=== PATIENT | female | born 1970 | race Caucasian/White ===

== ENCOUNTER 2016-08-11 08:19 | Emergency (ER) | payer OTHER ==
[~2016-08-11] VITALS: Ht 170.2 cm; Wt 87.0 kg
[~2016-08-11 08:19] MED LIST: BISM262T3 PO; IBUP-103 PO; PROM25TA9 PO
[2016-08-11 08:22] VITALS: TEMP 36.8; Ht 170.2 cm; Wt 87.0 kg
[2016-08-11] MEDS ORDERED: KETOROLAC TROMETHAMINE 60 MG/2 ML VIAL IM STA (08:44)
--- NOTE | 2016-08-11 09:00 | EMERGENCY ROOM VISIT NOTE ---
History First contact with patient: 09:08 Chief Complaint: NECK PAIN Stated Complaint: NECK PAIN AND RT ARM PAIN History of Present Illness The patient is a 45 year old female who presents to the Emergency Room with complaints of acute neck pain. The pain started 1 day ago. There is no injury or trauma. She points to the whole back of her neck. She notes this has been an ongoing problem. She was seen at a hospital in [place] 1 year ago (uncertain if she had just Xray or MRI as well) but was told she had a 'pinched nerve in her neck'. She was discharged without further follow-up. Her pain has continued on for the past year, at baseline 5/10 aching pain with radiation to the right arm. Her pain today worsened overnight to 7/10, aching pain, with radiation to the right upper extremity, particularly the back of the upper arm. She notes some tingling and weakness in the hand that is present at baseline but has worsened slightly. Her pain is worse when she rotates her neck to the right. She does have a mild headache today. \She denies fevers, visual disturbance or temporal tenderness. She takes Advil intermittently with variable effect. She has not taken Tylenol. She tried a muscle relaxant 1 year ago but is not currently on one. She has been eating and voiding without difficulty She has no chest pain or shortness of breath. Past Medical/Surgical History Medical Problems: (1) Cervical disc disease (2) Hypertension Arrhythmia, otherwise unspecified HTN: not on medication Surgical - Appendicectomy - Ablation 2012 Family History Mother: Fibromyalgiia of Lung Ca Social History Smoking Status: Never Smoker Smokeless Tobacco Use: No Alcohol Use: none Drug Use: none Marital Status: Housing Status: lives with significant other Occupation Status: employed ([employer]) Social History: Able to perform ADLs Current/Historical Medications Scheduled Cyclobenzaprine Hcl (Flexeril), 7 MG PO HS Prednisone (Prednisone), 1 TAB PO DAILY Allergies Coded Allergies: No Known Allergies (Unverified , 08/11/16) Physical Exam Vital Signs Date Time Temp Pulse Resp B/P Pulse Ox O2 Delivery O2 Flow Rate FiO2 08/11/16 09:49 65 17 146/86 100 08/11/16 09:27 68 15 137/88 96 Room Air 08/11/16 08:22 36.8 73 18 152/78 100 Room Air Pain Rating (0-10): 7 Physical Exam Constitutional: Vital signs as above were reviewed. Eyes: Pupils equal, round, and reactive to light. Extraocular muscles are intact. No proptosis. No photophobia. ENT: Mucous membranes are moist. Oropharynx is clear. No sinus tenderness. TMs are clear bilaterally. Cardiovascular: Heart with a regular rate and rhythm. Pulses are palpable and symmetric in all 4 extremities. No pedal edema appreciated. Respiratory: Lungs clear to auscultation bilaterally. No wheezes, rales, or rhonchi appreciated. No accessory muscle use. No retractions. No increased work of breathing. GI: Abdomen soft, nontender, nondistended. Normal active bowel sounds. No abdominal hernias appreciated. No rebound. No guarding. : No CVA tenderness appreciated. Musculoskeletal: No gross deformities. No bony tenderness. No calf swelling or tenderness. Point tenderness and swelling at base of C-spine and right suprascapular muscle Soft tissue prominence at base of C-spine; Suprascapular knot on the right side Limited right rotation (max 30 degrees); left rotation 60 degrees Compensates with scapular muscles with lateral flexion bilaterally Integumentary: Warm, dry, no rashes appreciated. Neurological: Patient awake, alert, and oriented x 3. Cranial nerves two through 12 grossly intact. Motor 5 out of 5 strength bilateral upper and lower extremities. Strength 5/5 in upper extremities, bilaterally Radial, ulnar and medial sensation, intact bilaterally Lymph: No cervical lymphadenopathy appreciated. Medical Decision & Procedures ER Provider Diagnostic Interpretation: CERVICAL SPINE 2 OR 3 VIEWS CLINICAL HISTORY: Acute neck pain with cervical spine tenderness. COMPARISON STUDY: No previous studies for comparison. FINDINGS: The prevertebral soft tissues are normal. There are moderate degenerative changes at the C56 and C6-7 levels with osteophyte formation, disc space narrowing.. No acute fractures or traumatic subluxations are visualized. No destructive lesions are evident. IMPRESSION: 1. No fractures or subluxations are visualized 2. Moderate degenerative changes at the C5-6 and C6-7 levels. Electronically signed by: Eddie Xie M.D. 08/11/2016 9:13 AM Dictated Date/Time: 08/11/2016 9:12 AM Medications Administered Medications (Trade) Dose Ordered Sig/Angeline Route Start Time Stop Time Status Last Admin Dose Admin Ketorolac Tromethamine (Toradol Inj) 60 mg NOW STAT IM 08/11/16 08:44 08/11/16 08:46 DC 08/11/16 08:51 60 MG Prednisone (PredniSONE TAB) 50 mg ONE ONCE PO 08/11/16 09:00 08/11/16 09:01 DC 08/11/16 09:26 50 MG ED Course 08:30 - Patient seen and assessed Orders for C-spine x-ray and 3 mg IM Toradol 08:45 - Precepted Case with Dr. Graham 09:00 - 50 mg Prednisone given to patient 09:30 - Reviewed C-spine film: negative Discussed results with patient; patient agreeable to discharge. PDMP reviewed 09:45 - Patient discharged in stable condition with prescriptions for 7 days of Flexeril plus additional 4 days of Prednisone 50 mg Medical Decision Patient is a pleasant 45 year old female with acute on chronic neck pain with radicular features. History was obtained, physical examination was performed and EMR reviewed. The case was discussed at multiple points of the patient's visit with Dr. Dereck Graham. This is a chronic problem and she has had cervical radiculopathy for the past 1 year (diagnosed in her previous home of [place]). Differential diagnosis includes, musculoskeletal strain, c-spine OA, facet arthropathy, c-spine fracture, cervical outlet syndrome, epidural abscess or hematoma. Patient does not some tingling in the hands but neurological examination is grossly intact. Apart from x-ray, advanced imaging such as MRI is not indicated at this time. She did have tight knots in her neck and in her right suprascapular muscle, suggesting possible muscular tension with underlying nerve compression. There are no features indicating need for surgical intervention. She was treated with 1 dose of Toradol which she responded well to. Ultimately , she needs physical therapy for home exercise modalities. She was given information to contact [facility]. She was discharged in stable condition. She was given a short course of Flexeril. The PDMP was reviewed prior to prescribing this. She will also complete a total 5 day course of Prednisone. [place] Drug Monitoring Program Search Results: patient reviewed within database (no records of controlled substance prescription) Impression Primary Impression: Degeneration of cervical intervertebral disc Ruled Out: Cervical spine fracture Departure Information Dispostion Home / Self-Care Condition GOOD Prescriptions Cyclobenzaprine Hcl (FLEXERIL) 10 Mg Tab 7 MG PO HS, #7 TAB Prov: Ambrose Elder MD 08/11/16 Prednisone (Prednisone) 50 Mg Tab 1 TAB PO DAILY for 4 Days, #4 TAB Prov: Ambrose Elder MD 08/11/16 Referrals No Doctor, Assigned (PCP) Patient Instructions My [facility] Additional Instructions You were admitted for acute neck pain. We did an x-ray of your neck. It does show some arthritis between you C5 and C7 vertebrae but there are no fractures and you do not need to be admitted at this time. We treated you with intramuscular non-steroidal medication which did help. You symptoms of tingling in the arm, likely suggest that you have a pinched nerve. When we examined you, you did have area of neck tightness. This may be the cause of your symptoms in addition to the arthritis in your neck. The first step to treating this is with physical therapy. You should be assessed by a physical therapist who can help you come up with a plan for home exercises to hopefully loosen some of the muscles in your neck. [facility] runs a physical therapy service that you can contact with the following information: [facility] [address] [place] [address] As you go home, we will give you 4 days of oral steroids to help subside the pain. In addition, we will give you a muscle relaxant to be used at nighttime only for the next 7 days. We expect this will help get past the peak of the pain If you are looking for a primary care provider, you can contact Dr. Ambrose Elder: [address], [address] [phone] If your symptoms fail to improve, acutely worsen, please seek medical attention immediately by either calling your primary care provider or going to your nearest emergency department. It was a pleasure to be involved in your care and we wish you all the best.
--- NOTE | 2016-08-11 09:15 | DIAGNOSTIC IMAGING REPORT ---
CERVICAL SPINE 2 OR 3 VIEWS CLINICAL HISTORY: Acute neck pain with cervical spine tenderness. COMPARISON STUDY: No previous studies for comparison. FINDINGS: The prevertebral soft tissues are normal. There are moderate degenerative changes at the C56 and C6-7 levels with osteophyte formation, disc space narrowing.. No acute fractures or traumatic subluxations are visualized. No destructive lesions are evident. IMPRESSION: 1. No fractures or subluxations are visualized 2. Moderate degenerative changes at the C5-6 and C6-7 levels. Electronically signed by: Eddie Xie M.D. 08/11/2016 9:13 AM Dictated Date/Time: 08/11/2016 9:12 AM
[2016-08-11] MEDS ORDERED: CYCL10TA6 PO (09:40)
[2016-08-11] MEDS ORDERED: PRED50TA PO (09:40)
[2016-08-11 09:49] VITALS: BP 146/86; PULSE 65; O2SAT 100
--- NOTE | 2016-08-11 14:21 | EMERGENCY ROOM VISIT NOTE ---
History Report prepared by Lizandro: Luis Alberto Gunderson Under the Supervision of: Dr. Dereck Graham D.O. First contact with patient: 08:31 Chief Complaint: NECK PAIN Stated Complaint: NECK PAIN AND RT ARM PAIN History of Present Illness The patient is a 45 year old female with a history of cervical disc disease who presents to the Emergency Room with complaints of exacerbated chronic neck pain for one day. The pain is rated 5/10 at baseline, but is currently 6-7/10. The patient takes Advil as needed for pain. The patient also notes some aching right arm pain and tingling in her right fingers. She does not have any right arm weakness. She has not gone to physical therapy for her symptoms. The patient denies any recent trauma. She also complains of a headache today. Patient denies change in vision, fevers, chest pain, shortness of breath, nausea , vomiting, diarrhea, pain with urination, and melena. She denies any history of diabetes. Source of History: patient Onset: one day Position: neck Symptom Intensity: 6-7/10 Timing: other (exacerbated) Modifying Factors (Relieving): ibuprofen Associated Symptoms: + headache, + numbness, No SOB, No chest pain, No diarrhea, No fevers, No melena, No nausea, No urinary symptoms, No vomiting, No weakness Review of Systems See HPI for pertinent positives & negatives. A total of 10 systems reviewed and were otherwise negative. Past Medical & Surgical Medical Problems: (1) Cervical disc disease (2) Hypertension Family History FH: cancer FH: lung disease Hypertension Social History Smoking Status: Never Smoker Marital Status: single Occupation Status: employed Current/Historical Medications Scheduled Cyclobenzaprine Hcl (Flexeril), 7 MG PO HS Prednisone (Prednisone), 1 TAB PO DAILY Allergies Coded Allergies: No Known Allergies (Unverified , 08/11/16) Physical Exam Vital Signs Date Time Temp Pulse Resp B/P Pulse Ox O2 Delivery O2 Flow Rate FiO2 08/11/16 09:49 65 17 146/86 100 08/11/16 09:27 68 15 137/88 96 Room Air 08/11/16 08:22 36.8 73 18 152/78 100 Room Air Physical Exam GENERAL: Sitting up in bed, disheveled, no acute distress, nontoxic. EYE EXAM: normal conjunctiva. OROPHARYNX: no exudate, no erythema, lips, buccal mucosa, and tongue normal and mucous membranes are moist NECK: supple, no nuchal rigidity, no adenopathy, minimal tenderness of the lower cervical spine on palpation. LUNGS: Clear to auscultation. Normal chest wall mechanics HEART: no murmurs, S1 normal and S2 normal ABDOMEN: abdomen soft, non-tender, normo-active bowel sounds, no masses, no rebound or guarding. BACK: Back is symmetrical on inspection and there is no deformity, no midline tenderness, no CVA tenderness. SKIN: no rashes and no bruising UPPER EXTREMITIES: Right upper extremity with flexion extension shoulder wrist elbow and digits are intact, abduction/adduction along with internal external rotation intact, worsened pain with abduction greater than 100 degrees over the biceps head. Radial pulse 2/4, gross sensation intact. LOWER EXTREMITIES: No pitting edema. NEURO EXAM: Normal sensorium. Medical Decision & Procedures ER Provider Diagnostic Interpretation: Xray results per the radiologist and my interpretation. CERVICAL SPINE 2 OR 3 VIEWS CLINICAL HISTORY: Acute neck pain with cervical spine tenderness. COMPARISON STUDY: No previous studies for comparison. FINDINGS: The prevertebral soft tissues are normal. There are moderate degenerative changes at the C56 and C6-7 levels with osteophyte formation, disc space narrowing.. No acute fractures or traumatic subluxations are visualized. No destructive lesions are evident. IMPRESSION: 1. No fractures or subluxations are visualized 2. Moderate degenerative changes at the C5-6 and C6-7 levels. Electronically signed by: Eddie Xie M.D. 08/11/2016 9:13 AM Dictated Date/Time: 08/11/2016 9:12 AM Medications Administered Medications (Trade) Dose Ordered Sig/Angeline Route Start Time Stop Time Status Last Admin Dose Admin Ketorolac Tromethamine (Toradol Inj) 60 mg NOW STAT IM 08/11/16 08:44 08/11/16 08:46 DC 08/11/16 08:51 60 MG Prednisone (PredniSONE TAB) 50 mg ONE ONCE PO 08/11/16 09:00 08/11/16 09:01 DC 08/11/16 09:26 50 MG ED Course ED COURSE: Vital signs were reviewed and were normal. The patients medical record was reviewed The above diagnostic studies were performed and reviewed. ED treatments and interventions as stated above. 0835: The patient was evaluated by my resident. 0844: Toradol 60 mg IM. 0900: Prednisone 50 mg PO. 13: The patient was evaluated in room B10. A complete history and physical examination was performed. 45: Upon reevaluation, the patient is stable.I discussed my findings with the patient and she understands and agrees with the treatment plan. Based on the patients age, coexisting illnesses, exam and lab findings the decision to treat as an outpatient was made. The patient remained stable while under my care. The patient appeared well at the time of discharge. Medical Decision Etiologies such as fracture, dislocation, neurovascular compromise, compartment syndrome, soft tissue injury, as well as others were entertained. Patient is a 45-year-old female who presents the ER midline cervical neck tenderness associated with pain radiating down her arm. She does complain of paresthesias in her fingers. This is been going off-and-on for the past year. She does have previous imaging which they're unsure of MRI versus CT that shows herniated disc. Patient denies any weakness. Pain is worsened with abduction greater than 100. She has a sniffing pain over the biceps tendon. Based on her symptoms I do believe that this is radicular in nature. X-rays of the neck showed no acute fractures. She is current steroids and Toradol. Showed improvement of her symptoms. She is discharged follow with her PCP on prednisone. Discussed with Pt concerning signs and symptoms to watch out for. Pt was instructed to follow up with their PCP and discussed with the patient their option to return to the ED at anytime for persistent or worsening symptoms. The appropriate anticipatory guidance and out-patient management, including indications for return to the emergency department, were explained at length to the patient and understood. Impression Primary Impression: Degeneration of cervical intervertebral disc Scribe Attestation The scribe's documentation has been prepared under my direction and personally reviewed by me in its entirety. I confirm that the note above accurately reflects all work, treatment, procedures, and medical decision making performed by me. Departure Information Dispostion Home / Self-Care Prescriptions Cyclobenzaprine Hcl (FLEXERIL) 10 Mg Tab 7 MG PO HS, #7 TAB Prov: Ambrose Elder MD 08/11/16 Prednisone (Prednisone) 50 Mg Tab 1 TAB PO DAILY for 4 Days, #4 TAB Prov: Ambrose Elder MD 08/11/16 Referrals No Doctor, Assigned (PCP) Forms HOME CARE DOCUMENTATION FORM, IMPORTANT VISIT INFORMATION, WORK / SCHOOL INSTRUCTIONS Patient Instructions My [facility] Additional Instructions You were admitted for acute neck pain. We did an x-ray of your neck. It does show some arthritis between you C5 and C7 vertebrae but there are no fractures and you do not need to be admitted at this time. We treated you with intramuscular non-steroidal medication which did help. You symptoms of tingling in the arm, likely suggest that you have a pinched nerve. When we examined you, you did have area of neck tightness. This may be the cause of your symptoms in addition to the arthritis in your neck. The first step to treating this is with physical therapy. You should be assessed by a physical therapist who can help you come up with a plan for home exercises to hopefully loosen some of the muscles in your neck. [facility] runs a physical therapy service that you can contact with the following information: [facility] [address] [place] [address] As you go home, we will give you 4 days of oral steroids to help subside the pain. In addition, we will give you a muscle relaxant to be used at nighttime only for the next 7 days. We expect this will help get past the peak of the pain If you are looking for a primary care provider, you can contact Dr. Ambrose Elder: [address], [address] [phone] If your symptoms fail to improve, acutely worsen, please seek medical attention immediately by either calling your primary care provider or going to your nearest emergency department. It was a pleasure to be involved in your care and we wish you all the best.
== END 2016-08-11 09:50 | disposition home or self-care (01) ==
LOC: C.EDB 08:20
DX: M50.90 Cervical disc disorder, unspecified, unspecified cervical region (principal); I10 Essential (primary) hypertension; M47.812 Spondylosis without myelopathy or radiculopathy, cervical region; Z82.49 Family history of ischemic heart disease and other diseases of the circulatory system

== ENCOUNTER 2016-11-03 09:42 | Emergency (ER) | payer OTHER ==
[~2016-11-03] VITALS: Ht 170.2 cm; Wt 93.2 kg
[2016-11-03 09:44] VITALS: TEMP 36.6; Ht 170.2 cm; Wt 93.2 kg
--- NOTE | 2016-11-03 10:30 | EMERGENCY ROOM VISIT NOTE ---
History Report prepared by Lizandro: Jerri Viera Under the Supervision of: Dr. Norm Hemphill M.D. First contact with patient: 10:06 Chief Complaint: BACK PAIN Stated Complaint: LOWER BACK PAIN History of Present Illness The patient is a 46 year old female who presents to the Emergency Room with complaints of persistent back pain for the past couple of days. She reports frequent urination. She denies any dysuria. She denies any other symptoms. She has had a bladder infection before around 5 years ago and states the pain feels similar. She denies any heavy lifting or strain. She has been having regular periods. Source of History: patient Onset: couple of days Position: back Quality: other (pain) Timing: other (persistent) Note: Pt reports frequent urination. Pt denies dysuria. Review of Systems All systems have been listed, reviewed, and are negative other than those previously mentioned. Please see Additional Medical History Sheet. Past Medical & Surgical Medical Problems: (1) Cervical disc disease (2) Hypertension Family History FH: cancer FH: lung disease Hypertension Social History Smoking Status: Never Smoker Alcohol Use: none Drug Use: none Marital Status: in relationship Housing Status: lives with significant other Occupation Status: employed Current/Historical Medications Scheduled Sulfa/Trimethoprim (Bactrim Ds 800MG/160MG), 1 TAB PO BID Allergies Coded Allergies: No Known Allergies (Unverified , 11/03/16) Physical Exam Vital Signs Date Time Temp Pulse Resp B/P Pulse Ox O2 Delivery O2 Flow Rate FiO2 11/03/16 12:20 76 18 141/100 97 Room Air 11/03/16 09:44 36.6 86 18 152/69 100 Room Air Physical Exam GENERAL: Patient awake, alert, oriented x 3. Patient follows commands. Patient does not appear toxic. Patient is adequately hydrated and well- nourished. SKIN: No erythema, pallor, cyanosis or rash HEENT: Normal head, pupils equal, reactive to light and accommodation. LUNGS: Clear to auscultation. No wheezes, no rales, no rhonchi. HEART: No murmurs. No gallops. No rubs BACK: Nontender. ABDOMEN: No masses, no rebound, no hepatomegaly or splenomegaly. EXTREMITIES: No signs of trauma or infection. NEUROLOGIC: Cranial nerves II-XII within normal limits. No gross motor sensory function deficits. Medical Decision & Procedures Laboratory Results Test 4/22/17 09:58 Urine Color DK YELLOW Urine Appearance CLOUDY (CLEAR) Urine pH 5.0 (4.5-7.5) Urine Specific [place] 1.023 (1.000-1.030) Urine Protein NEG (NEG) Urine Glucose (UA) NEG (NEG) Urine Ketones NEG (NEG) Urine Occult Blood NEG (NEG) Urine Nitrite NEG (NEG) Urine Bilirubin NEG (NEG) Urine Urobilinogen NEG (NEG) Urine Leukocyte Esterase MODERATE (NEG) Urine WBC (Auto) 10-30 /hpf (0-5) Urine RBC (Auto) 0-4 /hpf (0-4) Urine Hyaline Casts (Auto) 1-5 /lpf (0-5) Urine Epithelial Cells (Auto) >30 /lpf (0-5) Urine Bacteria (Auto) 2+ (NEG) Urine Pathogenic Casts /lpf (0) Urine Mucus PRESENT (NONE PRSENT) Urine Test NEG (NEG) Laboratory results as stated above per my review. ED Course 1008: Past medical records reviewed. The patient was evaluated in room B11B. A complete history and physical examination was performed. 1157: Upon reevaluation, the patient appeared to have improvement of her symptoms. I discussed today's findings with her. She verbalized agreement of the treatment plan. She was discharged home. Medical Decision Differential diagnoses: UTI, pyelonephritis, musculoskeletal pain. Patient's symptoms are most consistent with a urinary tract infection. Urinalysis is also consistent with that diagnosis. I do not believe the patient requires additional labs or imaging. The patient was given a prescription for Bactrim. She is to follow-up with a family physician in 2 weeks for repeat urinalysis. Impression Primary Impression: Urinary tract infection Scribe Attestation The scribe's documentation has been prepared under my direction and personally reviewed by me in its entirety. I confirm that the note above accurately reflects all work, treatment, procedures, and medical decision making performed by me. Departure Information Dispostion Home / Self-Care Prescriptions Sulfa/Trimethoprim (Bactrim Ds 800MG/160MG) Tab 1 TAB PO BID, #20 TAB Prov: Norm Hemphill M.D. 11/03/16 Referrals No Doctor, Assigned (PCP) Patient Instructions ED UTI Cystitis Female, My [facility] Additional Instructions One Bactrim twice a day for at least 5 days. Repeat urinalysis in 2 weeks. Drink extra fluids.
[2016-11-03 10:36] LABS: URINE APPEARANCE CLOUDY (CLEAR); URINE BILIRUBIN NEG (NEG); URINE COLOR DK YELLOW; URINE EPITHELIAL CELL AUTO >30 /lpf (0-5); URINE NITRITE NEG (NEG); URINE SPECIFIC GRAVITY 1.023 (1.000-1.030); UROBILINOGEN NEG (NEG); ZZUR CULT IF INDIC CLEAN CATCH YES
[2016-11-03 10:38] LABS: MANUAL MICROSCOPIC REQUIRED? NO; REVIEW REQ? YES
[2016-11-03 10:50] LABS: URINE MUCUS PRESENT (NONE PRSENT)
[2016-11-03] MEDS ORDERED: SULF800T23 PO (12:02)
[2016-11-03 12:20] VITALS: BP 141/100; PULSE 76; O2SAT 97
== END 2016-11-03 12:20 | disposition home or self-care (01) ==
LOC: C.EDB 09:44
DX: N39.0 Urinary tract infection, site not specified (principal); M50.90 Cervical disc disorder, unspecified, unspecified cervical region; I10 Essential (primary) hypertension; Z80.9 Family history of malignant neoplasm, unspecified; Z82.49 Family history of ischemic heart disease and other diseases of the circulatory system; Z83.6 Family history of other diseases of the respiratory system

== ENCOUNTER 2016-11-24 22:02 | Emergency (ER) | payer OTHER ==
[~2016-11-24] VITALS: Ht 170.2 cm; Wt 96.8 kg
[~2016-11-24 22:02] MED LIST changes: -BISM262T3 PO; -IBUP-103 PO; -PROM25TA9 PO; +SULF800T23 PO
[2016-11-24 22:06] VITALS: TEMP 37; Ht 170.2 cm; Wt 96.8 kg
[2016-11-24] MEDS ORDERED: DiphenhydrAMINE HCL 50 MG/ML VIAL IV STA (22:22)
[2016-11-24] MEDS ORDERED: KETOROLAC TROMETHAMINE 30 MG/ML VIAL IV STA (22:22)
[2016-11-24] MEDS ORDERED: SODIUM CHLORIDE 0.9% 1000ML 1,000 ML IV STA (22:22)
[2016-11-24] MEDS ORDERED: ALBUT/IPRATROP 3MG/0.5MG NEB 3 ML VIAL INH STA (22:22)
[2016-11-24] MEDS ORDERED: DEXAMETHASONE SOD INJ 10 MG/ML VIAL IV ONE (22:30)
[2016-11-24] MEDS ORDERED: ATV/1 PO (22:34)
[2016-11-24] MEDS ORDERED: PROG1CAP2 PO (22:34)
[2016-11-24] MEDS ORDERED: QUET200T2 PO (22:34)
[2016-11-24] MEDS ORDERED: SPIR50TA2 PO (22:34)
[2016-11-24] MEDS ORDERED: ESTR2TAB PO (22:34)
[2016-11-24] MEDS ORDERED: ESCI10TA17 PO (22:34)
[2016-11-24] MEDS ORDERED: IBUP-103 PO (22:44)
[2016-11-24 23:06] LABS: BASO % 0.6 %; BASO ABS # 0.03 K/uL (0-0.2); COMPLETE YES; EOS % 1.7 %; HEMATOCRIT 36.6 % (37-47); IG% 0.2 %; LYMPH % 15.9 %; LYMPH ABS # 0.77 K/uL (1.2-3.4); MEAN CELL VOLUME 83.4 fL (80-100); MEAN CORPUSCULAR HEMOGLOBIN 26.4 pg (25-34); MEAN CORPUSCULAR HGB CONC 31.7 g/dl (32-36); MEAN PLATELET VOLUME 9.2 fL (7.4-10.4); MONO % 9.3 %; NEUT % 72.3 %; PLATELET COUNT 209 K/uL (130-400); RED BLOOD COUNT 4.39 M/uL (4.2-5.4); WHITE BLOOD COUNT 4.84 K/uL (4.8-10.8)
[2016-11-24 23:25] LABS: BUN/CREATININE RATIO 15.3 (10-20); CALCIUM 8.3 mg/dl (8.5-10.1); CREATININE 0.79 mg/dl (0.60-1.20); POTASSIUM 3.9 mmol/L (3.5-5.1)
[2016-11-24 23:32] VITALS: BP 155/85; PULSE 81; O2SAT 95
[2016-11-24 23:45] LABS: PREG INTERNAL NEGATIVE QC NEG CLEAR BACKGROUND; PREG INTERNAL POSITIVE QC POS CONTROL LINE
[2016-11-24] MEDS ORDERED: ALBUTEROL HFA 8 GM INHALER INH ONE (23:45)
[2016-11-24] MEDS ORDERED: AMOXICIL/CLAVU 875MG HOME PACK PO ONE (23:45)
[2016-11-24] MEDS ORDERED: PRED50TA PO (23:52)
[2016-11-24] MEDS ORDERED: AMOX875T PO (23:52)
[2016-11-25 01:09] LABS: INFLUENZA A PCR Neg for Influ A (NEG); INFLUENZA B PCR Neg for Influ B (NEG)
--- NOTE | 2016-11-25 03:11 | EMERGENCY ROOM VISIT NOTE ---
History First contact with patient: 22:12 Chief Complaint: ILLNESS Stated Complaint: EAR ACHE, STUFFY, ACHING, COLD History of Present Illness The patient is a 46 year old female who presents to the Emergency Room with complaints of sinus pain and congestion, earache, runny nose, cough and congestion for the past several days. Patient complains of a subjective fever and chills but no temperature was taken. Patient denies chest pain, dyspnea, neck stiffness, sore throat, abdominal pain, vomiting, diarrhea. She is tolerating by mouth fluids and food. Review of Systems See HPI for pertinent positives & negatives. A total of 10 systems reviewed and were otherwise negative. Past Medical/Surgical History Medical Problems: (1) Cervical disc disease (2) Hypertension Family History FH: cancer FH: lung disease Hypertension Social History Smoking Status: Never Smoker Alcohol Use: none Drug Use: none Marital Status: in relationship Housing Status: lives with significant other Occupation Status: employed Current/Historical Medications Scheduled Amoxicillin & Pot Clavulanate (Augmentin 875-125 mg), 1 TAB PO BID Prednisone (Prednisone), 50 MG PO DAILY Scheduled PRN Ibuprofen Tab (Advil), 400 MG PO Q6 PRN for Pain Allergies Coded Allergies: No Known Allergies (Unverified , 11/24/16) Physical Exam Vital Signs Date Time Temp Pulse Resp B/P Pulse Ox O2 Delivery O2 Flow Rate FiO2 11/24/16 23:32 81 22 155/85 95 Room Air 11/24/16 22:06 37.0 101 18 161/94 97 Room Air Pain Rating (0-10): 4.0 Physical Exam VITALS: Vitals are noted on the nurse's note and reviewed by myself. Vital signs stable. GENERAL: Pleasant female, in no acute distress, nondiaphoretic, well-developed well-nourished. SKIN: The skin was without rashes, erythema, edema, or bruising. There is no tenting of the skin. Capillary reflex less than 2 seconds. HEAD: Normocephalic atraumatic. EARS: External auditory canals clear, tympanic membranes pearly heck without erythema or effusion bilaterally. EYES: Pupils equal round and reactive to light and accommodation. Conjunctivae without injection, sclerae without icterus. Extraocular movements intact. NOSE: Patent, turbinates without inflammation or discharge. Bilateral maxillary sinus tenderness. MOUTH: Mucous membranes moist. Pharynx without erythema or exudate. Uvula midline. Airway patent. Tongue does not deviate. NECK: Supple without nuchal rigidity. No lymphadenopathy. No thyromegaly. Cervical spine is nontender. No JVD. No meningeal signs HEART: Regular rate and rhythm without murmurs gallops or rubs. LUNGS: Mild diffuse end expiratory wheezes, without rales or rhonchi. No dullness to percussion. No retractions or accessory muscle use. ABDOMEN: Positive bowel sounds x 4. Normal tympanic percussion. Soft, nontender, without masses or organomegaly. Yun sign negative. No guarding or rebound tenderness. MUSCULOSKELETAL: No muscle atrophy, erythema, or edema noted. NEURO: Patient was alert and oriented to person place and time. Normal sensation to light and sharp touch. No focal neurological deficits. Medical Decision & Procedures Laboratory Results 11/24/16 22:46 Red Blood Count 4.39, Mean Corpuscular Volume 83.4, Mean Corpuscular Hemoglobin 26.4, Mean Corpuscular Hemoglobin Concent 31.7, Mean Platelet Volume 9.2, Neutrophils (%) (Auto) 72.3, Lymphocytes (%) (Auto) 15.9, Monocytes (%) (Auto) 9.3, Eosinophils (%) (Auto) 1.7, Basophils (%) (Auto) 0.6, Neutrophils # (Auto) 3.50, Lymphocytes # (Auto) 0.77, Monocytes # (Auto) 0.45, Eosinophils # (Auto) 0.08, Basophils # (Auto) 0.03 11/24/16 22:46 Test 11/24/16 22:46 11/24/16 22:55 White Blood Count 4.84 K/uL (4.8-10.8) Red Blood Count 4.39 M/uL (4.2-5.4) Hemoglobin 11.6 g/dL (12.0-16.0) Hematocrit 36.6 % (37-47) Mean Corpuscular Volume 83.4 fL (80-100) Mean Corpuscular Hemoglobin 26.4 pg (25-34) Mean Corpuscular Hemoglobin Concent 31.7 g/dl (32-36) Platelet Count 209 K/uL (130-400) Mean Platelet Volume 9.2 fL (7.4-10.4) Neutrophils (%) (Auto) 72.3 % Lymphocytes (%) (Auto) 15.9 % Monocytes (%) (Auto) 9.3 % Eosinophils (%) (Auto) 1.7 % Basophils (%) (Auto) 0.6 % Neutrophils # (Auto) 3.50 K/uL (1.4-6.5) Lymphocytes # (Auto) 0.77 K/uL (1.2-3.4) Monocytes # (Auto) 0.45 K/uL (0.11-0.59) Eosinophils # (Auto) 0.08 K/uL (0-0.5) Basophils # (Auto) 0.03 K/uL (0-0.2) RDW Standard Deviation 41.9 fL (36.4-46.3) RDW Coefficient of Variation 13.9 % (11.5-14.5) Immature Granulocyte % (Auto) 0.2 % Immature Granulocyte # (Auto) 0.01 K/uL (0.00-0.02) Anion Gap 8.0 mmol/L (3-11) Est Creatinine Clear Calc Drug Dose 106.3 ml/min Estimated GFR () 104.0 Estimated GFR (Non- 89.8 BUN/Creatinine Ratio 15.3 (10-20) Calcium Level 8.3 mg/dl (8.5-10.1) Human Chorionic Gonadotropin, Qual NEG (NEG) Influenza Type A (RT-PCR) Neg for Influ A (NEG) Influenza Type A Antigen Neg for Influ A (NEG) Influenza Type B Antigen Neg for Influ B (NEG) Influenza Type B (RT-PCR) Neg for Influ B (NEG) Medications Administered Medications (Trade) Dose Ordered Sig/Angeline Route Start Time Stop Time Status Last Admin Dose Admin Dexamethasone Sodium Phosphate (Decadron Inj) 10 mg NOW ONCE IV 11/24/16 22:30 11/24/16 22:31 DC 11/24/16 22:58 10 MG Albuterol/ Ipratropium (Duoneb) 3 ml NOW STAT INH 11/24/16 22:22 11/24/16 22:25 DC 11/24/16 22:57 3 ML Diphenhydramine HCl 25 mg 25 mg NOW STAT IV 11/24/16 22:22 11/24/16 22:25 DC 11/24/16 22:58 25 MG Sodium Chloride (Nss 1000ml) 1,000 ml @ 999 mls/hr Q1H1M STAT IV 11/24/16 22:22 11/24/16 23:22 DC 11/24/16 22:59 999 MLS/HR Ketorolac Tromethamine (Toradol Inj) 30 mg NOW STAT IV 11/24/16 22:22 11/24/16 22:25 DC 11/24/16 22:58 30 MG Amoxicillin/ Clavulanate Potassium (Augmentin 875MG Home Pack) 1 homepack UD ONCE PO 11/24/16 23:45 11/24/16 23:46 DC 11/24/16 23:58 1 HOMEPACK Albuterol (Ventolin Hfa Inhaler) 2 puffs NOW ONCE INH 11/24/16 23:45 11/24/16 23:46 DC 11/24/16 23:59 2 PUFFS ED Course Prior records/ancillary studies reviewed. Triage Nursing notes reviewed. Additional history obtained from family. The patient's history was concerning for a cold sx. Differential diagnosis: Etiologies such as viral syndrome, sinusitis, otitis, pneumonia, influenza, bronchitis, as well as others were entertained. ER treatment provided: Nebulizer, prednisone, albuterol On reassessment the patient felt better. Diagnostics interpreted by me: The labs revealed no worrisome leukocytosis or electrolyte abnormality Imaging studies: Chest x-ray with no acute consolidation, pneumothorax or free air per my interpretation This appears to be consistent with sinusitis with bronchitis. Patient felt much better to be medicated as above. No signs of meningitis. No signs of airway compromise. No pneumonia. She is advised take medications as directed and to follow-up family care in a few days or here in the ER sooner for high fevers, neck status, lethargy, worsening signs or symptoms or as needed. By the evaluation outlined above emergent etiologies such as peritonsillar abscess , retropharyngeal abscess, otitis, pneumonia, meningitis, urinary tract infection, sepsis, bacteremia, as well as others were deemed relatively unlikely. The pt informed about the findings as listed above. All questions were answered and pleased with the treatment. Return instructions were outlined and the patient was discharged in stable condition. Outpatient prescription management: Augmentin, prednisone Referral: The patient was referred back to their primary care physician for follow-up in 2 to 3 days for a recheck of the current condition. Medical Decision as above Impression Primary Impression: Bronchitis Additional Impression: Acute sinusitis Departure Information Dispostion Home / Self-Care Condition GOOD Prescriptions Amoxicillin & Pot Clavulanate (Augmentin 875-125 mg) 1 Tab Tab 1 TAB PO BID, #18 TAB Prov: Lanie Monet PA-C 11/24/16 Prednisone (Prednisone) 50 Mg Tab 50 MG PO DAILY for 4 Days, #4 TAB Prov: Lanie Monet PA-C 11/24/16 Forms WORK / SCHOOL INSTRUCTIONS, HOME CARE DOCUMENTATION FORM, Days off work : 2 Work Instructions, IMPORTANT VISIT INFORMATION Patient Instructions Sinusitis Acute, Bronchitis Acute, [facility] Additional Instructions Amoxicillin Clavulanate (Augmentin) 875mg: Take one pill twice daily for 10 days for your infection. All antibiotics can cause diarrhea. If this occurs and you feel worse or it does not resolve in 1-2 days follow up with your doctor or return to the Emergency Department as this could be signs of serious underlying problems. Any medication can cause an allergic reaction, stop the pills immediately and return to the ER for rash, hives, breathing difficulties, or swelling. Prednisone 50 m tablet daily for the next 4 days. Take this in the morning. Acetaminophen(Tylenol) may be used for fever or pain. Use 1000mg every six hours as needed. Avoid using more than 3000mg in a 24 hour period. (AND/OR) Ibuprofen(Motrin, Advil) may be used for fever or pain. Use 600mg every six hours as needed. Take with food. Avoid using more than 2400mg in a 24 hour period. Do not use 2400mg per day for more than three consecutive days without physician direction. Prolonged inappropriate use can lead to stomach upset or ulcers. Afrin nasal spray: 2-3 sprays to each nostril twice daily as needed for congestion. Do not use for more than 3-4 days because it can lead to worsening rebound congestion. Pseudoephedrine(Sudaphed): 30-60mg every 6 hours as needed for nasal congestion. Do not take this with other stimulant products or supplements. Albuterol Inhaler: Take 2 puffs four times daily for seven days, then as needed. Rest and drink plenty of fluids. Controlling your fever with Tylenol and Ibuprofen as above will make you feel better. Wash your hands after nose blowing, sneezing, or coughing. Most germs are spread through contact, therefore improper hygiene may result in your close contacts and loved ones becoming ill just like you. Continue current medications. Return to the ER for severe headache, neck stiffness, chest pain, difficulty breathing, fevers, vomiting, worsening of your condition, or as needed. Follow up with your primary physician this week for a recheck of your current condition. Problem Qualifiers Additional Impression: Acute sinusitis Sinusitis location: frontal Recurrence: not specified as recurrent Qualified Codes: J01.10 - Acute frontal sinusitis, unspecified
--- NOTE | 2016-11-25 07:33 | DIAGNOSTIC IMAGING REPORT ---
CHEST 2 VIEWS ROUTINE CLINICAL HISTORY: Cough. Fever. COMPARISON STUDY: No previous studies for comparison. FINDINGS: Lung volumes are normal. Lungs are clear. There is no pneumothorax or pleural effusion. Pulmonary vascularity is normal. Cardiac size is normal. Mediastinal contours are normal. IMPRESSION: No acute cardiopulmonary findings. Electronically signed by: Karan Leo M.D. 11/25/2016 7:32 AM Dictated Date/Time: 11/25/2016 7:31 AM
== END 2016-11-25 00:02 | disposition home or self-care (01) ==
LOC: C.EDB 22:03
DX: J40 Bronchitis, not specified as acute or chronic (principal); J01.10 Acute frontal sinusitis, unspecified; M50.90 Cervical disc disorder, unspecified, unspecified cervical region; I10 Essential (primary) hypertension; Z82.49 Family history of ischemic heart disease and other diseases of the circulatory system

== ENCOUNTER 2016-12-20 10:46 | Emergency (ER) | payer OTHER ==
[~2016-12-20] VITALS: Ht 170.2 cm; Wt 96.5 kg
[~2016-12-20 10:46] MED LIST changes: +IBUP-103 PO; -SULF800T23 PO
[2016-12-20 10:49] VITALS: TEMP 36.6; Ht 170.2 cm; Wt 96.5 kg
[2016-12-20] MEDS ORDERED: KETOROLAC TROMETHAMINE 60 MG/2 ML VIAL IM STA (11:15)
[2016-12-20] MEDS ORDERED: METH4PAK PO (11:17)
[2016-12-20] MEDS ORDERED: CYCL10TA6 PO (11:19)
--- NOTE | 2016-12-20 11:28 | EMERGENCY ROOM VISIT NOTE ---
ED Visit Note First contact with patient: 11:00 CHIEF COMPLAINT: Neck pain HISTORY OF PRESENT ILLNESS: This 46-year-old female patient presents to the emergency department with her complaining of pain in the neck which began this morning. Patient has a prior history of bulging cervical disc, and was seen in the emergency department in July of this year for the same problem. She states her neck hurts most days, however this morning when she awoke it is worse than it has been a while. Patient states she is having difficulty with moving her head, and holding her head up, so notes she has to lie down on occasion due to the discomfort. Patient did not follow-up with her PCP, nor did she complete physical therapy as instructed since she was last seen here in July. The patient states "I've been too lazy to find a PCP". 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 She did take 600 mg ibuprofen this morning approximately 6 hours ago, and states it did help slightly. The patient rates the pain as ache and 6/10. The patient does have a history of previous neck problems. The patient denies new injury. The patient does not have pain of the arms and shoulders. The patient denies numbness and tingling. The patient denies chest pain or shortness of breath. There was no head injury and no loss of consciousness. The patient denies headache, blurred vision, abdominal pain, nausea, or vomiting. The patient denies change in personality. REVIEW OF SYSTEMS: A 6 system review of systems was completed with positives and pertinent negatives listed in the HPI. ALLERGIES: None MEDICATIONS: None PMH: Hypertension SOCIAL HISTORY: Patient lives locally with her family. She denies alcohol, tobacco, drug use. PHYSICAL EXAM: VITALS: Vitals are noted on the nurse's note and reviewed by myself. Vital signs stable, however blood pressure slightly elevated. GENERAL: 46-year-old female, in no acute distress, nondiaphoretic, well-developed well-nourished. SKIN: Capillary reflex less than 2 seconds. HEENT: Normocephalic. PERRLA. EOMI. Nares patent. Mucous membranes moist. Neck is supple without nuchal rigidity. Cervical spine is not tender to palpation. The patient does report tenderness of the paraspinal muscles bilaterally, worse on the right. There is no lymphadenopathy. MUSCULOSKELETAL: The patient has full range of motion of the bilateral arms. Strength 5/5 of the bilateral upper extremities. The patient has tenderness with all movements of the neck. NEURO: Patient was alert and oriented to person place and time. Normal sensation to light and sharp touch. No focal neurologic deficits. EMERGENCY DEPARTMENT COURSE: I examined the patient. Discussion with patient regarding no new injury to neck, and decreased likelihood of fracture, which would show up on x-ray. Patient declines x-ray at this time. Patient given 60 mg Toradol IM, and notes improvement in neck pain. Discussion with patient regarding proper follow-up and the need for a PCP. Spoke with caseworkers, who then spoke with the patient regarding obtaining a PCP for proper follow-up regarding this issue. I also discussed with the patient the need for follow-up regarding elevated blood pressure. The patient was discharged home in good condition. DIAGNOSIS: Neck pain, cervical disc disease DIFFERENTIAL DIAGNOSIS: herniated cervical disc, degenerative disc disease, spinal stenosis, infectious etiology such as abscess, muscle spasm, cervical sprain and strain, osteoporosis, DISCHARGE INSTRUCTIONS & TREATMENT: You have been treated in the Emergency Department for Neck Pain. You have received pain medicine in the emergency department. You have been prescribed Flexeril (cyclobenzaprine) 1 tab orally, as needed, at bedtime. This medication can make you drowsy. Always take all medications as prescribed. You have been prescribed a Medrol Dosepak. This is a steroid which will help decrease your inflammation in your neck. Take the medicine as prescribed. Take the ENTIRE 6 day course of the steroids. For pain control, you can use the following [id number]-[id number] medicines (if >12 yo): - Regular strength (325mg/tab) Tylenol (acetaminophen) 2 tabs every 4-6 hours as needed. Do not exceed 12 tablets in a 24 hour period. Avoid taking more than 4 grams (4000 mg) of Tylenol per day. This includes any other sources of acetaminophen you may take on a regular basis. - Regular strength (200 mg/tab) Advil (ibuprofen) 1-2 tabs every 4-6 hours as needed. Do not exceed a dose of 3200 mg per day. Use a heating pad over the area for continued soothing relief. You should schedule a follow-up appointment in 2-3 days with the Primary Care Provider our [employer] have spoken with you about for further evaluation and treatment of your neck pain. You did not have a new injury, and were recently seen, within 6 months, in the emergency Department for the same problem. As discussed, the proper treatment for this specific problem is generally outpatient physical therapy. Your primary care provider should be able to set you up with a physical therapist for further management of the discomfort. Noted elevated blood pressure in the emergency department today. You informed me that he did have a history of high blood pressure. I discussed with the risks of un-treated, uncontrolled high blood pressure, including stroke, heart attack, aneurysm, kidney disease, visual disturbances. You should have a primary care provider follow-up regarding your elevated blood pressure. Until you are able to follow up with primary care, you should avoid caffeine, tobacco , alcohol, sodium. You should drink plenty of fluids. Return to the Emergency Department if your current symptoms worsen despite treatment course outlined above, or if you develop any of the following symptoms : intractable pain despite aforementioned treatment course, facial droop, slurred speech, unilateral weakness, chest pain, trouble breathing, or worsening of your current symptoms. Problem List Medical Problems: (1) Cervical disc disease Status: Chronic (2) Hypertension Status: Chronic Current/Historical Medications Scheduled Cyclobenzaprine Hcl (Flexeril), 10 MG PO HS Methylprednisolone (Medrol Dosepak), 0 PO DAILY Scheduled PRN Ibuprofen Tab (Advil), 400 MG PO Q6 PRN for Pain Allergies Coded Allergies: No Known Allergies (Unverified , 12/20/16) Vital Signs Date Time Temp Pulse Resp B/P (MAP) Pulse Ox O2 Delivery O2 Flow Rate FiO2 12/20/16 11:41 67 18 157/90 97 12/20/16 10:49 36.6 64 20 157/90 100 Room Air Medications Administered Medications (Trade) Dose Ordered Sig/Angeline Route Start Time Stop Time Status Last Admin Dose Admin Ketorolac Tromethamine (Toradol Inj) 60 mg NOW STAT IM 12/20/16 11:15 12/20/16 11:16 DC 12/20/16 11:23 60 MG Departure Information Impression Primary Impression: Degeneration of cervical intervertebral disc Additional Impressions: Cervical disc disease Hypertension Dispostion Home / Self-Care Condition GOOD Prescriptions Cyclobenzaprine Hcl (FLEXERIL) 10 Mg Tab 10 MG PO HS for Muscle Spasms for 5 Days, #5 TAB Prov: Burke, Mona D., PA-C 12/20/16 Methylprednisolone (MEDROL DOSEPAK) 4 Mg Brian 0 PO DAILY, #1 PKT Prov: Mona Turk PA-C 12/20/16 Referrals No Doctor, Assigned (PCP) Patient Instructions [facility] Additional Instructions You have been treated in the Emergency Department for Neck Pain. You have received pain medicine in the emergency department. You have been prescribed Flexeril (cyclobenzaprine) 1 tab orally, as needed, at bedtime. This medication can make you drowsy. Always take all medications as prescribed. You have been prescribed a Medrol Dosepak. This is a steroid which will help decrease your inflammation in your neck. Take the medicine as prescribed. Take the ENTIRE 6 day course of the steroids. For pain control, you can use the following dznf-wbh-kaqylay medicines (if >12 yo): - Regular strength (325mg/tab) Tylenol (acetaminophen) 2 tabs every 4-6 hours as needed. Do not exceed 12 tablets in a 24 hour period. Avoid taking more than 4 grams (4000 mg) of Tylenol per day. This includes any other sources of acetaminophen you may take on a regular basis. - Regular strength (200 mg/tab) Advil (ibuprofen) 1-2 tabs every 4-6 hours as needed. Do not exceed a dose of 3200 mg per day. Use a heating pad over the area for continued soothing relief. You should schedule a follow-up appointment in 2-3 days with the Primary Care Provider our [employer] have spoken with you about for further evaluation and treatment of your neck pain. You did not have a new injury, and were recently seen, within 6 months, in the emergency Department for the same problem. As discussed, the proper treatment for this specific problem is generally outpatient physical therapy. Your primary care provider should be able to set you up with a physical therapist for further management of the discomfort. Noted elevated blood pressure in the emergency department today. You informed me that he did have a history of high blood pressure. I discussed with the risks of un-treated, uncontrolled high blood pressure, including stroke, heart attack, aneurysm, kidney disease, visual disturbances. You should have a primary care provider follow-up regarding your elevated blood pressure. Until you are able to follow up with primary care, you should avoid caffeine, tobacco , alcohol, sodium. You should drink plenty of fluids. Return to the Emergency Department if your current symptoms worsen despite treatment course outlined above, or if you develop any of the following symptoms : intractable pain despite aforementioned treatment course, facial droop, slurred speech, unilateral weakness, chest pain, trouble breathing, or worsening of your current symptoms. Work Instructions Return To Work: 1 day Lifting Limitations: none Additional Work Instructions: Please excuse the patient from work today. She may return to work tomorrow. Problem Qualifiers Additional Impressions: Hypertension Hypertension type: essential hypertension Qualified Codes: I10 - Essential ( primary) hypertension
[2016-12-20 11:41] VITALS: BP 157/90; PULSE 67; O2SAT 97
== END 2016-12-20 11:43 | disposition home or self-care (01) ==
LOC: C.EDD 10:53
DX: M50.20 Other cervical disc displacement, unspecified cervical region (principal); I10 Essential (primary) hypertension; Z79.899 Other long term (current) drug therapy

== ENCOUNTER → 2017-02-08 | Outpatient (CLI) | payer OTHER ==
[2017-02-08 17:46] LABS: BASO % 0.3 %; BASO ABS # 0.02 K/uL (0-0.2); COMPLETE YES; EOS % 1.9 %; HEMATOCRIT 40.2 % (37-47); IG% 0.1 %; LYMPH % 20.3 %; LYMPH ABS # 1.51 K/uL (1.2-3.4); MEAN CELL VOLUME 84.3 fL (80-100); MEAN CORPUSCULAR HGB CONC 32.1 g/dl (32-36); MEAN PLATELET VOLUME 9.8 fL (7.4-10.4); NEUT % 72.4 %; PLATELET COUNT 263 K/uL (130-400); RED BLOOD COUNT 4.77 M/uL (4.2-5.4); WHITE BLOOD COUNT 7.44 K/uL (4.8-10.8)
[2017-02-08 17:51] LABS: URINE APPEARANCE CLEAR (CLEAR); URINE BILIRUBIN NEG (NEG); URINE COLOR YELLOW; URINE EPITHELIAL CELL AUTO >30 /lpf (0-5); URINE NITRITE NEG (NEG); URINE PH 5.5 (4.5-7.5); URINE SPECIFIC GRAVITY 1.014 (1.000-1.030); UROBILINOGEN NEG (NEG); ZZUR CULT IF INDIC CLEAN CATCH YES
[2017-02-08 17:57] LABS: MANUAL MICROSCOPIC REQUIRED? NO; REVIEW REQ? YES
[2017-02-08 18:07] LABS: ALT/SGPT 18 U/L (12-78); BLOOD UREA NITROGEN 10 mg/dl (7-18); BUN/CREATININE RATIO 10.9 (10-20); CALCIUM 8.5 mg/dl (8.5-10.1); CARBON DIOXIDE 28 mmol/L (21-32); CHLORIDE 104 mmol/L (98-107); CREATININE 0.89 mg/dl (0.60-1.20); GLUCOSE 88 mg/dl (70-99); POTASSIUM 3.8 mmol/L (3.5-5.1); SODIUM 140 mmol/L (136-145)
[2017-02-08 18:15] LABS: ALKALINE PHOSPHATASE 85 U/L (45-117); AST/SGOT 14 U/L (15-37); FERRITIN 6.7 ng/ml (8.0-388.0); TOTAL IRON BINDING CAPACITY 413 mcg/dl (250-450)
== END | disposition home or self-care (01) ==
LOC: C.LABBFT 12:52
PROVIDERS: ATTEND Internal Medicine
DX: R53.83 Other fatigue (principal); D64.9 Anemia, unspecified

== ENCOUNTER → 2017-03-13 | Outpatient (CLI) | payer OTHER | END | disposition home or self-care (01) | LOC: C.PATHSPEC 17:28 | PROVIDERS: ATTEND Plastic Surgery | DX: D23.39 Other benign neoplasm of skin of other parts of face (principal) ==

== ENCOUNTER → 2017-03-13 | Outpatient (CLI) | payer OTHER ==
[2017-03-13 13:38] LABS: BLOOD UREA NITROGEN 11 mg/dl (7-18); BUN/CREATININE RATIO 14.1 (10-20); CALCIUM 8.6 mg/dl (8.5-10.1); CARBON DIOXIDE 28 mmol/L (21-32); CHLORIDE 108 mmol/L (98-107); CHOLESTEROL 195 mg/dl (0-200); CREATININE 0.77 mg/dl (0.60-1.20); GLUCOSE 83 mg/dl (70-99); POTASSIUM 4.1 mmol/L (3.5-5.1); SODIUM 139 mmol/L (136-145); TRIGLYCERIDES 160 mg/dl (0-150); VERY LOW DENSITY LIPOPROT CALC 32 mg/dl
[2017-03-13 13:48] LABS: CHOLESTEROL/HDL RATIO 3.7; HDL CHOLESTEROL 53 mg/dl; LDL CHOLESTEROL CALCULATED 110 mg/dl
== END | disposition home or self-care (01) ==
LOC: C.LABBFT 09:47
PROVIDERS: ATTEND Physician Assistant Medical
DX: Z13.6 Encounter for screening for cardiovascular disorders (principal); R79.89 Other specified abnormal findings of blood chemistry; N12 Tubulo-interstitial nephritis, not specified as acute or chronic